=== PATIENT | male | born 2000 | race African-American/Black ===

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

== ENCOUNTER 2019-03-05 02:26 | Emergency (ER) | payer SELFPAY ==
[~2019-03-05] VITALS: Ht 198.1 cm; Wt 131.5 kg
[2019-03-05 02:35] VITALS: BP 150/85
--- NOTE | 2019-03-05 02:38 | NUR ---
TO LOBBY A/W BED AMBULATORY
--- NOTE | 2019-03-05 03:20 | NUR ---
PT AMBULATED TO BED 12
--- NOTE | 2019-03-05 03:50 | NUR ---
PT C/O CLEAR DISCHARGE FROM PENIS X 1 DAY, PT ALSO C/O LEFT FLANK PAIN X 1 DAY. PT STATES NO PAIN ON URANTION BUT PAIN TO PALPATION OF LEFT FLANK. PT IS SEXUALLY ACTIVE. PT STATES HE USES CONDOMS. PT HAS NO HX OR KNDA. DENIES N/V/D; SKIN IS PINK/WARM/DRY; AAOX4 WITH EVEN AND STEADY GAIT; LUNGS CLEAR BL; HR EVEN AND REGULAR; PT DENIES ANY FEVER, CP, SOB, OR COUGH AT THIS TIME; PATIENT STATES PAIN OF 5/10 AT THIS TIME; VSS; PATIENT POSITIONED FOR COMFORT; HOB ELEVATED; BEDRAILS UP X1; BED DOWN. ER MADE AWARE OF PT STATUS.
[2019-03-05] MEDS ORDERED: AZITHROMYCIN 250 MG TAB PO ONE (04:05)
[2019-03-05] MEDS ORDERED: cefTRIAXone 250 MG in LIDOCAINE MPF 1% 0.9 ML IM ONE (04:05)
[2019-03-05] MEDS ORDERED: IBUPROFEN 800 MG TAB PO ONE (04:05)
[2019-03-05] MEDS ORDERED: LIDOCAINE MPF 1% 5 ML ONE (04:11)
[2019-03-05] MEDS ORDERED: cefTRIAXone 250 MG VIAL ONE (04:11)
--- NOTE | 2019-03-05 04:37 | NUR ---
NO CHANGES FROM PREVIOUS ASSESSMENT. PT VSS. Patient discharged with v/s stable. Written and verbal after care instructions given and explained. Patient alert, oriented and verbalized understanding of instructions. Ambulatory with steady gait. All questions addressed prior to discharge. ID band removed. Patient advised to follow up with PMD. Rx of MOTRIN given. Patient educated on indication of medication including possible reaction and side effects. Opportunity to ask questions provided and answered.
[2019-03-05 04:39] VITALS: BP 140/74
== END 2019-03-05 04:39 | disposition home or self-care (01) ==
LOC: MED 02:26
DX: A64 Unspecified sexually transmitted disease (principal); M54.30 Sciatica, unspecified side; M54.5 Low back pain; R03.0 Elevated blood-pressure reading, without diagnosis of hypertension; J45.909 Unspecified asthma, uncomplicated; Z88.5 Allergy status to narcotic agent; Z79.899 Other long term (current) drug therapy
CPT/HCPCS: 96372; 99283; J0696; J2001

== ENCOUNTER 2021-07-24 02:41 | Emergency (ER) | payer BC, OTHER ==
[~2021-07-24] VITALS: Ht 195.6 cm; Wt 131.5 kg
[2021-07-24 02:45] VITALS: BP 126/74
--- NOTE | 2021-07-24 02:59 | NUR ---
ER AT BEDSIDE
--- NOTE | 2021-07-24 03:05 | NUR ---
URINE COLLECTED AND WALKED TO LAB
--- NOTE | 2021-07-24 03:15 | NUR ---
21/M BIB SELF C/O LEFT TESTICULAR PAIN X3DAYS, PAIN IS RAD TO ADRIA FLANK AND TO LOWER ABD PAIN. PAIN IS SHARP 7/10. PATIENT STATED THAT HE HAD X3 EPISODES OF VOMIT AND DIARRHEA YESTERDAY. PATIENT HAD A DECREASED IN APPETITE. PATIENT DENIES SOB/CP/CHILLS/FEVER AT THIS TIME. RR EVEN AND UNLABORED. SKIN WARM, DRY AND INTACT. PATIENT PLACED IN A GOWN AND OFFERED BLANKET. BED LOW AND LOCKED. SIDE RAIL UP FOR SAFETY. ALL NEEDS MET AT THIS TIME. PMHX DENIES MEDS DENIES ALLERGIES CODEINE
[2021-07-24 03:16] LABS: APPEARANCE,URINE CLEAR (CLEAR); BILIRUBIN,URINE NEGATIVE (NEGATIVE); BLOOD, URINE NEGATIVE (NEGATIVE); COLOR,URINE YELLOW (YELLOW); LEUKOCYTE ESTERASE ,URINE NEGATIVE (NEGATIVE); NITRITE, URINE NEGATIVE (NEGATIVE); UGLUCOSE NEGATIVE (NEGATIVE)
--- NOTE | 2021-07-24 03:16 | NUR ---
MD CONTRERAS ASSESSING PATIENT
--- NOTE | 2021-07-24 03:38 | NUR ---
US AT BEDSIDE
[2021-07-24] MEDS ORDERED: KETOROLAC 60 MG/2 ML VIAL IM ONE (04:05)
--- NOTE | 2021-07-24 04:25 | NUR ---
PATIENT SITTING IN BED QUIETLY. BED LOW AND LOCKED. PAIN GIVEN ORDERED. ALL NEEDS MET AT THIS TIME.
--- NOTE | 2021-07-24 04:50 | NUR ---
PATIENT PAIN DECREASED TO A TOLERABLE 1/10.
--- NOTE | 2021-07-24 05:00 | NUR ---
MD CONTRERAS AT BEDSIDE REVIEWING RESULTS WITH THE PATIENT
[2021-07-24] MEDS ORDERED: NAPR-54 PO (05:10)
--- NOTE | 2021-07-24 05:19 | NUR ---
Patient discharged with v/s stable. Written and verbal after care instructions given on Epididymitis and Varicolele and explained. Patient alert, oriented and verbalized understanding of instructions. Ambulatory with steady gait. All questions addressed prior to discharge. ID band removed. Patient advised to follow up with PMD. Rx of Naproxen given.
[2021-07-24 05:20] VITALS: BP 128/78
--- NOTE | 2021-07-24 05:20 | NUR ---
Chart checked and completed.
== END 2021-07-24 05:20 | disposition home or self-care (01) ==
LOC: MED 02:41
DX: N50.9 Disorder of male genital organs, unspecified (principal); I86.1 Scrotal varices; J45.909 Unspecified asthma, uncomplicated; Z79.899 Other long term (current) drug therapy; Z88.5 Allergy status to narcotic agent
CPT/HCPCS: 76870; 81003; 87086; 87491; 96372; 99284; J1885; Q0092